=== PATIENT | female | born 1960 | race African-American/Black ===

== ENCOUNTER 2020-10-15 13:41 | Emergency (ER) | payer OTHER, SELFPAY ==
[~2020-10-15] VITALS: Ht 170.2 cm; Wt 58.5 kg
[~2020-10-15 13:41] MED LIST: AMLO10TA PO; BUDE3CAP PO; CALC667C3 PO; CARV25TA PO; CLON0.2T47 TD; CYCL-654 PO; DOCU-299 PO; ETOD300C30 PO; FURO-570 PO; FURO20TA8 PO; IBUP-1842 PO; ISOS10TA9 PO; NITR100C7 PO; OMEP20TC22 PO; PRE.625 PO; ROC.25 PO; SIMV20TA1 PO; SULF500T6 PO; TEMA15CA24 PO
[2020-10-15 13:47] VITALS: BP 161/106
--- NOTE | 2020-10-15 13:58 | NUR ---
Patient transferred to bed 12 via wheelchair by triage nurse. RN evaluating the patient at bedside.
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
[2020-10-15] MEDS ORDERED: NACL 0.9% 500 ML IV ONE (14:30)
--- NOTE | 2020-10-15 14:56 | NUR ---
UNABLE TO GET IV ACCESS AFTER NUMEROUS ATTEMPTS, MILTON MADE AWARE
--- NOTE | 2020-10-15 15:30 | NUR ---
PT ALERT AND AWAKE, BREATHING EVEN AND UNLABORED. NO DISTRESS NOTED. WILL CONTINUE TO MONITOR.
[2020-10-15 15:36] LABS: BASOPHILS % (AUTO) 0.5 % (0.0-2.0); EOSINOPHILS # (AUTO) 0.1 K/uL (0-0.4); HEMATOCRIT 25.3 % (36-48); HEMOGLOBIN 8.3 g/dL (12.0-16.0); LYMPHOCYTES # (AUTO) 2.3 K/uL (2.5-16.5); LYMPHOCYTES % (AUTO) 28.5 % (20.5-51.1); MEAN CORPUSCULAR HEMOGLOBIN 30 pg (27-31); MEAN CORPUSCULAR HGB CONC 33 g/dL (33-37); MEAN CORPUSCULAR VOLUME 90.6 fL (80-94); MONOCYTES # (AUTO) 0.8 K/uL (0.8-1.0); MONOCYTES % (AUTO) 9.5 % (1.7-9.3); NEUTROPHILS # (AUTO) 4.9 K/uL (1.8-7.7); NEUTROPHILS % (AUTO) 60.5 % (42.2-75.2); PLATELET COUNT (AUTO) 306 K/uL (140-450); RED BLOOD CELL COUNT(AUTO) 2.79 MIL/uL (4.20-5.40); RED CELL DISTRIBUTION WIDTH 16.7 % (11.6-13.7); WHITE BLOOD COUNT (AUTO) 8.1 K/uL (4.8-10.8)
[2020-10-15 16:03] LABS: ALBUMIN 2.7 g/dL (3.4-5.0); ANION GAP 11.9 (8-16); CARBON DIOXIDE 25.7 mmol/L (21-32); CREATININE 1.8 mg/dL (0.6-1.3); TOTAL BILIRUBIN 0.2 mg/dL (0.0-1.0)
[2020-10-15 16:05] LABS: PROTHROMBIN TIME 12.1 secs (10.8-13.4)
[2020-10-15 16:12] LABS: POTASSIUM 2.6 mmol/L (3.5-5.1)
--- NOTE | 2020-10-15 16:30 | NUR ---
PT ALERT AND AWAKE, BREATHING EVEN AND UNLABORED. NO DISTRESS NOTED. WILL CONTINUE TO MONITOR.
[2020-10-15] MEDS ORDERED: POTASSIUM CHLORIDE 10 MEQ TABER PO ONE (16:50)
--- NOTE | 2020-10-15 18:53 | NUR ---
PT ALERT AND AWAKE, BREATHING EVEN AND UNLABORED. NO DISTRESS NOTED. WILL CONTINUE TO MONITOR.
--- NOTE | 2020-10-15 19:01 | NUR ---
BP 178/109, HR 106. PER MILTON HE STATES THAT HE IS OKAY WITH DISCHARGING PATIENT SOON.
--- NOTE | 2020-10-15 19:07 | NUR ---
REPORT GIVEN TO EYAD SOLORIO, TRANSFER OF CARE AT THIS TIME
--- NOTE | 2020-10-15 19:15 | NUR ---
Patient discharged with v/s stable. Written and verbal after care instructions about hypertension given and explained. Patient verbalized understanding. Ambulatory with steady gait. All questions addressed prior to discharge. Advised to follow up with PMD.
[2020-10-15 19:16] VITALS: BP 178/109
== END 2020-10-15 19:16 | disposition home or self-care (01) ==
LOC: MED 13:41
DX: S00.12XA Contusion of left eyelid and periocular area, initial encounter (principal); M79.89 Other specified soft tissue disorders; R06.02 Shortness of breath; I10 Essential (primary) hypertension; K50.90 Crohn's disease, unspecified, without complications; Z85.41 Personal history of malignant neoplasm of cervix uteri; W19.XXXA Unspecified fall, initial encounter; Y93.89 Activity, other specified; Y92.89 Other specified places as the place of occurrence of the external cause; Y99.8 Other external cause status
CPT/HCPCS: 36415; 70450; 70486; 71275; 72125; 80053; 83880; 84484; 85025; 85610; 85730; 93005; 93971; 96360; 99285; J7030; Q9967